=== PATIENT | male | born 1975 | race Caucasian/White ===

== ENCOUNTER → 2021-10-07 | Outpatient (CLI) | payer MEDICARE ==
[~2021-10-07] MED LIST: AMIODARONE HCL200 MG PO; ASPIRIN EC81 MG PO; BUMETANIDE2 MG PO; CEFUROXIME500 MG PO; CLOPIDOGREL75 MG PO; CORDARONE 200M200 MG PO; COREG 3.125M3.125 MG PO; COUMADIN 10MG T10 MG PO; CRESTOR 10 MG T10 MG PO; DESYREL 50 MG T50 MG PO; DOBUTAMINE; ELIQUIS2.5 MG PO; ENTRESTO 24 MG1 EACH PO; GLUCOPHAGE 500500 MG PO; HUMALOG 10100 UNITS/ SC; HYDROCORTISONE IVP; IMDUR ER TAB 3030 MG PO; LEVEMIR100 UNIT/1 SQ; LEVOPHED; LIPITOR TAB 2020 MG PO; LOPRESSOR 25 MG25 MG PO; NORMAL SALINE; OMNICEF 300 MG300 MG PO; PLAVIX75 MG PO; PROVENTIL HFA6.7 GM INH; TOPROL XL25 MG PO; VICODIN 5-3001 EACH PO; ZITHROMAX250 MG PO; ZOSYN; [UNRECOGNIZED DRUG - OTHER] SC
== END ==
LOC: EXRD 09-26 11:30 → US 12:42 → EXRD 13:00
DX: N17.9 Acute kidney failure, unspecified (principal)